=== PATIENT | male | born 2005 | race African-American/Black ===

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

== ENCOUNTER 2025-04-04 19:54 | Emergency (ER) | payer OTHER, SELFPAY ==
[2025-04-04 19:55] VITALS: BP 142/85; PULSE 85; RESP 14; TEMP 36.9; O2SAT 98; BMI 35.8
--- NOTE | 2025-04-04 22:27 | EX.ED.DYSGE1 ---
HPI History of Present Illness Chief Complaint: General Illness Informant: patient Onset/Context/Timing Onset: Days (2) Context: Gradual Onset Timing: Continuous Quality: Scratchy Location: Throat Worsened by: Nothing Relieved by: Nothing Narrative Narrative: Patient presents with upper respiratory congestion, cough, and sore throat that has been getting worse over the past 2 days. Patient states his throat feels scratchy. Patient states his ears feel full. Patient admits to some rhinorrhea. Patient denies any fevers or chills. Patient states nothing makes his symptoms better and nothing makes them worse. Patient denies any chest pain or shortness of breath. Patient denies any nausea or vomiting. PFSH PFSH no medical history Home Medications ?Medication ?Instructions ?Recorded ?Last Taken ?Type NK 04/03/22 Unknown History Allergy/AdvReac Type Severity Reaction Status Date / Time No Known Allergies Allergy Verified 04/04/25 19:57 no surgical history Social History Smoking Status: Never smoker substance use type: does not use ROS ROS ED Constitutional Constitutional ED: Denies chills or fever(s) Eyes Eyes: Denies blurry vision or change in vision ENT ENT ED: Reports ear pain, rhinorrhea and sore throat Cardiovascular Cardiovascular: Denies chest pain or palpitations Respiratory/Chest Respiratory/Chest: Reports cough; Denies dyspnea Gastrointestinal Gastrointestinal: Denies nausea or vomiting Genitourinary Genitourinary ED: Denies dysuria or hematuria Musculoskeletal Musculoskeletal: Denies back pain or neck pain Integumentary Denies abscess or rash Neurologic Neurologic: Denies headache(s) or weakness Allergic/Immunologic Allergic/Immunologic ED: Denies mouth swelling or urticaria EXAM Physical Exam Const Vital Signs: 04/04/25 19:55 04/04/25 22:15 Temperature 98.4 F Temperature Source Oral Pulse Rate 85 Respiratory Rate 14 Respiratory Effort Normal Non-Labored Respiratory Pattern Normal Blood Pressure 142/85 H Blood Pressure Mean 104 Pulse Ox 98 Oxygen Delivery Method Room Air Positive well nourished and well developed Constitutional Narrative: BMI is 35.8 General Appearance ED: well developed and NAD HEENT Reports TM's clear and moist mucous membranes HEENT Narrative: Oropharynx is clear. There are no exudates or erythema. Airway is patent. Tympanic Membrane ED: Yes TM's clear bilateral Eyes PERRL Neck supple and no JVD Resp normal respiratory effort and clear to auscultation bilaterally Cardio regular rate and regular rhythm GI non-tender and non-distended Palpation: soft Neuro oriented x3, CN's II-XII intact bilaterally and no sensory deficits noted Sensorium / Orientation: alert Motor Exam: strength 5/5 throughout Psych mental status grossly normal MDM MDM MDM Narrative Medical decision making narrative: Patient was advised that this is most likely a viral upper respiratory infection. Patient was instructed continue using [id number] decongestants as needed. Patient was instructed to take Tylenol or ibuprofen as needed for pain or fever. Patient was instructed to return if worse in any way. Patient was instructed to follow-up with his primary care physician in 5 to 7 days for further evaluation. Patient understood and was agreeable with plan. All questions were answered. Discharge Plan Triage Chief Complaint: General Illness ED Provider: Parvez Mccoy Dx/Rx/DC Orders Clinical Impression: Viral upper respiratory tract infection, Cough Instructions: ED URI, Viral, No Abx (Adult) Prescriptions: No Action NK Stand Alone Forms: ED Work / School Excuse Primary Care Provider: Emeli Villalpando Referrals: Emeli Villalpando MD [Primary Care Provider] - 5-7 Days Print Language: Japanese Disposition Disposition: Home, Self Care
[2025-04-04 22:45] VITALS: BP 148/84; PULSE 79; RESP 16; TEMP 36.6; O2SAT 95
== END 2025-04-04 22:48 | disposition home or self-care (01) ==
LOC: ED 22:42
PROVIDERS: Emergency Provider Emergency Medicine; Visit Provider Emergency Medicine
DX: J06.9 Acute upper respiratory infection, unspecified (principal); R05.9 Cough, unspecified
CPT/HCPCS: 99282